=== PATIENT | male | born 1955 | race Native Hawaiian/Other Pacific Islander ===

== ENCOUNTER → 2019-08-12 17:53 | Outpatient (CLI) | payer BC, SELFPAY ==
--- NOTE | 2019-08-12 | DI.RAD.S_ITS ---
PROCEDURE: XR SCAPULA LT INDICATIONS: LT SHOULDER PAIN / WEAKNESS TECHNIQUE: 2 views of the scapula were acquired. COMPARISON: None. FINDINGS: Bones: No fractures or dislocations there is moderate degenerative osteoarthritic change at the a.c. joint. No suspicious bony lesions. Visualized ribs appear intact. Soft tissues: Overlying soft tissues appear normal. IMPRESSION: Moderate a.c. 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 Dictated by: Grzegorz Singletary M.D. on 08/13/2019 at 8:06 Approved by: Grzegorz Singletary M.D. on 08/13/2019 at 8:07
--- NOTE | 2019-08-12 | DI.RAD.S_ITS ---
PROCEDURE: XR SHOULDER LT MIN 2V INDICATIONS: LT SHOULDER PAIN / WEAKNESS TECHNIQUE: 3 views of the shoulder were acquired. COMPARISON: FINDINGS: Bones: No fractures or dislocations. No suspicious bony lesions. Visualized ribs appear intact. Moderately severe a.c. joint osteoarthritis. Soft tissues: No suspicious soft tissue calcifications. IMPRESSION: Moderately severe a.c. joint osteoarthritis. Dictated by: Grzegorz Singletary M.D. on 08/13/2019 at 9:38 Approved by: Grzegorz Singletary M.D. on 08/13/2019 at 9:39
== END ==
PROVIDERS: Visit Provider Physician Assistant
DX: M25.512 Pain in left shoulder (principal); M19.012 Primary osteoarthritis, left shoulder
CPT/HCPCS: 73010; 73030

== ENCOUNTER → 2019-09-05 15:28 | Outpatient (CLI) | payer BC, SELFPAY ==
--- NOTE | 2019-09-05 | DI.MRI.S_ITS ---
PROCEDURE: MR SHOULDER LT WO CON INDICATIONS: strain of muscles and tendons TECHNIQUE: Noncontrast oblique coronal T2 fast spin echo with fat saturation, oblique sagittal T1 spin echo and T2 fast spin echo with fat saturation, axial T1 spin echo and T2 fast spin echo with fat saturation through the shoulder. COMPARISON: None. FINDINGS: Image quality: Excellent. Rotator cuff: There is mild T2 signal elevation within the anterior supraspinatus tendon at the humeral insertion site, with a small superimposed region of fluid signal intensity in the anterior supraspinatus tendon at the humeral insertion site. Infraspinatus, teres minor, and subscapularis tendons are intact. Bones and bursae: No bone marrow contusions or fractures. There is moderate acromioclavicular joint degeneration. The acromion demonstrates conventional anatomy, without an os acromiale. A small amount of subacromial-subdeltoid or subcoracoid bursal fluid is present. Capsule and soft tissues: There is undercutting of the posterosuperior glenoid labrum. The long head of the biceps tendon demonstrates normal location and morphology. The rotator interval appears normal, without fibrosis. The coracohumeral ligament is normal in thickness. IMPRESSION: 1. Supraspinatus tendinopathy with small superimposed partial-thickness intrasubstance tear. No full-thickness rotator cuff tear. 2. Mild subacromial bursitis. 3. Acromioclavicular joint osteoarthritis. 4. Posterior glenoid labral tearing. Dictated by: Eden Baron M.D. on 09/05/2019 at 16:32 Approved by: Eden Baron M.D. on 09/05/2019 at 16:35
== END ==
PROVIDERS: Visit Provider Orthopaedic Surgery
DX: S46.012A Strain of muscle(s) and tendon(s) of the rotator cuff of left shoulder, initial encounter (principal); S43.492A Other sprain of left shoulder joint, initial encounter; M75.52 Bursitis of left shoulder; M19.012 Primary osteoarthritis, left shoulder
CPT/HCPCS: 73221

== ENCOUNTER 2019-11-11 15:06 | Emergency (ER) | payer BC, SELFPAY ==
[2019-11-11 15:10] VITALS: BP 189/93; PULSE 94; RESP 14; TEMP 36.6; O2SAT 98; BMI 28.0
--- NOTE | 2019-11-11 15:10 | ED.FALL ---
HPI - Fall General Chief Complaint: Fall Stated Complaint: rt rib pain s/p fall in shower Time Seen by Provider: 11/11/19 15:07
--- NOTE | 2019-11-11 15:20 | DI.RAD.S_ITS ---
PROCEDURE: XR RIBS RT MIN 3V W CXR 1V INDICATIONS: fell on bathtub, pain in posterior right lower ribs TECHNIQUE: 2 views of the right ribs were acquired, along with a single view chest. COMPARISON: None. FINDINGS: Surgical changes and devices: None. Bones and chest wall: No dislocations. Note is made of a cortical irregularity near the anterior margin of the costochondral junction, osseous border, involving the right ninth rib. No suspicious bony lesions. Overlying soft tissues appear unremarkable. Lungs and pleura: No pleural effusions or pneumothorax. Lungs appear clear. Mediastinum: Mediastinal contours appear normal. Heart size is normal. IMPRESSION: A plain film surface marker was placed over the area of maximal tenderness, lower right posterolateral ribs. There is a ninth rib cortical irregularity near the costochondral junction, suggestive of a nondisplaced fracture. No associated pneumothorax. Dictated by: Grzegorz Singletary M.D. on 11/11/2019 at 15:41 Approved by: Grzegorz Singletary M.D. on 11/11/2019 at 15:45
[2019-11-11] MEDS: ACETAMINOPHEN 325 MG TABLET 650 MG PO (15:30)
[2019-11-11] MEDS: IBUPROFEN 400 MG TABLET PO (15:32)
[2019-11-11] MEDS: LIDOCAINE PATCH 1 EACH ADH..PATCH TOP (15:33)
--- NOTE | 2019-11-11 15:35 | ED.FALL ---
HPI - Fall <XIMENA Aparicio - Last Filed: 11/11/19 17:45> General Chief Complaint: Fall Stated Complaint: rt rib pain s/p fall in shower Time Seen by Provider: 11/11/19 15:07 Source: patient Mode of arrival: Ambulatory Limitations: no limitations History of Present Illness HPI Narrative: This is a 68-year-old male, nonsmoker, who presents to ED with chief complaint of right posterior thoracic pain radiating to anterior right-sided chest. Patient reports he had fell in bath tub this morning at 5 a.m. when he was about to take shower and landed on his posterior right thoracic region on the edge of bath tub. Patient denies losing consciousness or hitting his head. Patient is not currently taking anticoagulants. Patient reports pain increases with deep breathing, coughing, movements. Patient denies short of breath or chest pain. Pain is sharp in character and only with movements. Patient has not taking any medications before coming into ED. Related Data Previous Rx's Medication Instructions Recorded lidocaine 1 patch TOP Q24H #30 each 11/11/19 tramadol 50 mg PO BID PRN #10 tab 11/11/19 Allergies Allergy/AdvReac Type Severity Reaction Status Date / Time No Known Drug Allergies Allergy Verified 11/11/19 15:15 Review of Systems <XIMENA Aparicio - Last Filed: 11/11/19 17:45> Review of Systems Narrative: General: Denies fever, chills, fatigue, malaise, sweats. HEENT: Denies sinus pain, ear pain, sore throat, difficulty swallowing, dizziness. Respiratory: Denies dyspnea, cough, wheezing, hemoptysis, sputum. Cardiovascular: Denies chest pain, palpitations, orthopnea, edema. Gastrointestinal: Denies nausea, vomiting, abdominal pain, diarrhea, constipation, melena. : Denies dysuria, frequency, incontinence, hematuria, urinary retention. Musculoskeletal: See HPI Skin: Denies rash, skin lesions, or other. Neurologic: Denies weakness, headache, numbness, change in speech, confusion, seizures, incoordination. Psychiatric: No concerning psychosocial issues. 12-point review of systems is negative except for those stated above. Patient History <XIMENA Aparicio - Last Filed: 11/11/19 17:45> Medical History Diabetes (Acute) Hypertension (Acute) Social History Smoking Status: Never smoker Smoking Status: Never smoker alcohol intake frequency: a few times a week Substance Use Type: does not use Exam <XIMENA Aparicio - Last Filed: 11/11/19 17:45> Narrative Exam Narrative: General appearance: well developed, well nourished, in no acute distress. Head: normocephalic, atraumatic, no scalp lesions, non-tender. ENT: Hearing grossly intact. Nose without bleeding, purulent discharge. Mucous membrane moist, no mucosal lesion. Throat without erythema, tonsillar hypertrophy or exudate. Uvula in midline, airway patent. Neck/Thyroid: neck supple, full range of motion, no visible masses or meningeal signs. No JVD, non-tender without lymphadenopathy. Skin: no suspicious rashes, lesions over visible areas. Warm and dry and appropriate color for ethnicity. Heart: no clubbing, no cyanosis, no edema. S1 and S2 normal. RRR w/o murmurs, clicks, or bruits. Lungs: Breathing even and unlabored. No stridor. No accessory muscles used. Able to speak in full sentences. Chest: normal shape and expansion. Abdomen: non-obese, non-distended. Neurologic: alert and oriented. Cognitive exam, [employer] and PNS grossly intact on informal exam. Psych: good eye contact, normal affect. Initial Vital Signs Initial Vital Signs: Vital Signs Temperature 97.8 F 11/11/19 15:10 Pulse Rate 94 H 11/11/19 15:10 Respiratory Rate 14 11/11/19 15:10 Blood Pressure 189/93 H 11/11/19 15:10 Pulse Oximetry 98 11/11/19 15:10 Back/Spine/Pelvis Thoracic/Lumbar Spine: thoracic and lumbar spine normal to inspection, thoraco-lumbar ROM limited and other (No erythema, ecchymosis, crepitus to palpate) <Lakesha Salcedo DO - Last Filed: 11/11/19 18:05> Initial Vital Signs Initial Vital Signs: Vital Signs Temperature 97.8 F 11/11/19 15:10 Pulse Rate 94 H 11/11/19 15:10 Respiratory Rate 14 11/11/19 15:10 Blood Pressure 189/93 H 11/11/19 15:10 Pulse Oximetry 98 11/11/19 15:10 Scores <Robbi AllanBelénKeenanXIMENA cardenas - Last Filed: 11/11/19 17:45> GCS [place] coma scale eye opening: Spontaneous [place] coma scale verbal response: Orientated [place] coma scale motor response: Obey commands [place] coma scale total score: 15 Course <Robbi BrandonXIMENA cardenas - Last Filed: 11/11/19 17:45> Orders Ordered: ED Orders 11/11/19 15:20 XR ribs RT min 3V w CXR1V Stat Discontinued Medications Acetaminophen (Tylenol) 650 mg PO NOW ONE Stop: 11/11/19 15:21 Last Admin: 11/11/19 15:30 Dose: 650 mg Documented by: MMCFARL Ibuprofen (Advil) 400 mg PO NOW ONE Stop: 11/11/19 15:21 Last Admin: 11/11/19 15:32 Dose: 400 mg Documented by: MMCFARL Lidocaine (Lidoderm) 1 each TOP NOW ONE Stop: 11/11/19 15:21 Last Admin: 11/11/19 15:33 Dose: 1 each Documented by: MMCALICIA Vital Signs Vital signs: Vital Signs - 8 hr 11/11/19 15:10 11/11/19 16:25 Temperature 97.8 F Pulse Rate 94 H 88 Respiratory Rate 14 15 Blood Pressure 189/93 H 125/79 Pulse Oximetry 98 98 <Lakesha Salcedo DO - Last Filed: 11/11/19 18:05> Orders Ordered: ED Orders 11/11/19 15:20 XR ribs RT min 3V w CXR1V Stat Discontinued Medications Acetaminophen (Tylenol) 650 mg PO NOW ONE Stop: 11/11/19 15:21 Last Admin: 11/11/19 15:30 Dose: 650 mg Documented by: MMCFARL Ibuprofen (Advil) 400 mg PO NOW ONE Stop: 11/11/19 15:21 Last Admin: 11/11/19 15:32 Dose: 400 mg Documented by: MMCFARL Lidocaine (Lidoderm) 1 each TOP NOW ONE Stop: 11/11/19 15:21 Last Admin: 11/11/19 15:33 Dose: 1 each Documented by: MMCFARL Vital Signs Vital signs: Vital Signs - 8 hr 11/11/19 15:10 11/11/19 16:25 Temperature 97.8 F Pulse Rate 94 H 88 Respiratory Rate 14 15 Blood Pressure 189/93 H 125/79 Pulse Oximetry 98 98 MDM - Fall <XIMENA Aparicio - Last Filed: 11/11/19 17:45> Differential Diagnosis Differential diagnosis: Likely other (Rib fracture, rib contusion, pneumothorax) Medical Records Attestation: I reviewed the patient's medical records. Imaging Data XR-Rib and chest: Radiologist's Impression: [address] [address] XRay Report Signed Patient: Aaron Alfaro GMR#: [id number] : 07/13/1951cct:[id number] Age/Sex: 68 / MDate of Service: 11/11/19 Loc: ED Accession Number: [id number] Procedure: XR ribs RT min 3V w CXR1V Ordering Provider: Robbi Singh PROCEDURE: XR RIBS RT MIN 3V W CXR 1V INDICATIONS: fell on bathtub, pain in posterior right lower ribs TECHNIQUE: 2 views of the right ribs were acquired, along with a single view chest. COMPARISON: None. FINDINGS: Surgical changes and devices: None. Bones and chest wall: No dislocations. Note is made of a cortical irregularity near the anterior margin of the costochondral junction, osseous border, involving the right ninth rib. No suspicious bony lesions. Overlying soft tissues appear unremarkable. Lungs and pleura: No pleural effusions or pneumothorax. Lungs appear clear. Mediastinum: Mediastinal contours appear normal. Heart size is normal. IMPRESSION: A plain film surface marker was placed over the area of maximal tenderness, lower right posterolateral ribs. There is a ninth rib cortical irregularity near the costochondral junction, suggestive of a nondisplaced fracture. No associated pneumothorax. Dictated by: Grzegorz Singletary M.D. on 11/11/2019 at 15:41 Approved by: Grzegorz Singletary M.D. on 11/11/2019 at 15:45 [facility] Narrative Medical decision making narrative: This is a 68-year-old male who presents to ED with right posterior all lower rib which radiating to anterior lower rib pain after he slipped and fell on the edge of bathtub and landed on affected site this morning at 5 a.m. patient denies short of breath but pain increases with movement and taking a deep breaths. Patient had not taken any medications before coming into ED. physical exam was benign. Lung sounds are clear to auscultate in all lobes. Chest/rib x-ray shows a 9th rib cortical irregularity near the Costochondral junction which is suggestive of nondisplaced fracture. There is no pneumothorax. Patient offered Tylenol, Motrin and lidocaine patch and he elected to take lidocaine patch only. Patient advise to exercise with the breathing 10 times every hour when he is awake to prevent pneumonia with pain management. Return precautions were discussed with the patient and discharged to home with lidocaine patch and traumadol for severe pain and to use baseline with Tylenol and Motrin for pain management. Patient verbalized understanding and in agreement with treatment plan. Discharge Plan Departure Patient Disposition: Home Clinical Impression: Closed rib fracture Qualifiers: Encounter type: initial encounter Rib fracture type: single rib Laterality: right Qualified Code(s): S22.31XA - Fracture of one rib, right side, initial encounter for closed fracture Discharge Date/Time: 11/11/19 16:25 Activity Restrictions/Additional Instructions: You have been diagnosed with [fall and rib fracture on 9th right anterior non-displaced costochondral junction. Please take a deep breaths 10 times every hour while your awake to prevent pneumonia.]. What to do: *Take your medications as directed. You can take Tylenol 650-1000 mg 3 to 4 times a day as needed for pain. You can add ibuprofen/Motrin 400 mg 3 times a day as needed for pain and inflammation but with food. Please use lidocaine patch on affected area for pain which stays on for 12 hours and off for 12 hours. 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 Use tramadol for severe pain if her pain is not managed with does previous medications and at sleep and this is narcotic medication. Please take precautions for drowsiness such as not driving, drinking alcohol or operating heavy equipments. *Follow up with your primary care provider in 2-3 days, call for an appointment. Let them know you were seen in the ED and that we asked you to be seen in follow up. *Return to ED if you have any new, worsening, or concerning symptoms, such as [chest pain, breathing difficulty, unable to tolerate fluids, fever, productive cough or any acute concerns]. Prescriptions: New tramadol 50 mg tablet 50 mg PO BID PRN (Reason: pain) Qty: 10 RF: 0 lidocaine 5 % adhesive patch,medicated 1 patch TOP Q24H Qty: 30 RF: 0
[2019-11-11 16:25] VITALS: BP 125/79; PULSE 88; RESP 15; O2SAT 98
== END 2019-11-11 16:25 | disposition home or self-care (01) ==
PROVIDERS: Emergency Provider Nurse Practitioner Family
DX: S22.31XA Fracture of one rib, right side, initial encounter for closed fracture (principal); W18.2XXA Fall in (into) shower or empty bathtub, initial encounter
CPT/HCPCS: 71101; 99283